=== PATIENT | male | born 1960 | race Caucasian/White ===

== ENCOUNTER 2022-08-08 22:00 | Outpatient (REF) | payer OTHER, SELFPAY ==
[2022-08-08 23:08] LABS: ALT 38 U/L (16-63); AST 23 U/L (15-37); Alkaline Phosphatase 49 U/L (46-116); Anion Gap 12.5 mmol/L (3-11); BUN 17 mg/dL (7-18); Bilirubin, Total 0.6 mg/dL (0.2-1.0); CO2 24.5 mmol/L (21.0-32.0); CREATININE 0.9 mg/dL (0.70-1.30); Calcium 9.7 mg/dL (8.5-10.1); Calculated LDL 92 mg/dL (<100); Chloride 103 mmol/L (98-107); Cholesterol 173 mg/dL (<200); Estimated GFR 96.57 (mL/min/1.73m2); Glucose 84 mg/dL (74-106); HDL Cholesterol 40 mg/dL (40-60); Potassium 4.2 mmol/L (3.5-5.1); Sodium 140 mmol/L (136-145); TSH (W/Ref FT4) 4.84 uIU/mL (0.36-3.74); Total Protein 7.7 g/dL (6.4-8.2); Triglyceride 208 mg/dL (<150)
[2022-08-08 23:26] LABS: FREE T4 0.74 ng/dL (0.76-1.46)
[2022-08-09 18:26] LABS: PSA, Screening 5.2 ng/mL (<=4.5)
[2022-08-10 10:08] LABS: HIV-1/2 Ag & Ab Screen Negative (Negative)
[2022-08-10 10:20] LABS: Hepatitis C Ab w Rflx HCV PCR Negative (Negative)
== END 2022-08-08 22:01 | disposition home or self-care (01) ==
LOC: NCHCN 22:00
PROVIDERS: Visit Provider Nurse Practitioner Family
DX: R94.6 Abnormal results of thyroid function studies (principal); I10 Essential (primary) hypertension; Z13.220 Encounter for screening for lipoid disorders; Z11.3 Encounter for screening for infections with a predominantly sexual mode of transmission; Z12.5 Encounter for screening for malignant neoplasm of prostate
CPT/HCPCS: 80053; 80061; 84153; 86803; 87389; 84439; 84443

== ENCOUNTER 2022-09-18 16:10 | Outpatient (REF) | payer OTHER, SELFPAY ==
[2022-09-18 16:16] LABS: TSH (W/Ref FT4) 1.63 uIU/mL (0.36-3.74)
[2022-09-18 23:25] LABS: PSA, Screening 4.9 ng/mL (<=4.5)
== END 2022-09-18 16:11 | disposition home or self-care (01) ==
LOC: NCHCN 16:10
PROVIDERS: PCP Nurse Practitioner Family; Visit Provider Nurse Practitioner Family
DX: E03.9 Hypothyroidism, unspecified (principal); R97.20 Elevated prostate specific antigen [PSA]
CPT/HCPCS: 84153; 84443

== ENCOUNTER 2023-02-22 09:25 | Outpatient (REF) | payer OTHER, SELFPAY ==
[2023-02-22 15:25] LABS: Calculated LDL 70 mg/dL (<100); Cholesterol 130 mg/dL (<200); HDL Cholesterol 38 mg/dL (40-60); TSH 3.36 uIU/mL (0.36-3.74); Triglyceride 112 mg/dL (<150)
== END 2023-02-22 09:26 | disposition home or self-care (01) ==
LOC: NCHCN 09:25
PROVIDERS: PCP Nurse Practitioner Family; Visit Provider Nurse Practitioner Family
DX: E03.9 Hypothyroidism, unspecified (principal); E78.5 Hyperlipidemia, unspecified
CPT/HCPCS: 80061; 84443

== ENCOUNTER 2023-08-24 13:16 | Outpatient (REF) | payer SELFPAY ==
[2023-08-24 15:20] LABS: ALT 44 U/L (16-63); AST 24 U/L (15-37); Alkaline Phosphatase 39 U/L (46-116); Anion Gap 8.3 mmol/L (3-11); BUN 17 mg/dL (7-18); Bilirubin, Total 0.92 mg/dL (0.2-1.0); CO2 26.7 mmol/L (21.0-32.0); CREATININE 1.1 mg/dL (0.70-1.30); Calcium 9.2 mg/dL (8.5-10.1); Chloride 106 mmol/L (98-107); Estimated GFR 75.43 (mL/min/1.73m2); Glucose 137 mg/dL (74-106); Potassium 4.2 mmol/L (3.5-5.1); Sodium 141 mmol/L (136-145); Total Protein 7.9 g/dL (6.4-8.2)
== END 2023-08-24 13:17 | disposition home or self-care (01) ==
LOC: NCHCN 13:16
PROVIDERS: PCP Nurse Practitioner Family; Visit Provider Nurse Practitioner Family
DX: I10 Essential (primary) hypertension (principal); E03.9 Hypothyroidism, unspecified; N40.1 Benign prostatic hyperplasia with lower urinary tract symptoms
CPT/HCPCS: 80053; 84153; 84443

== ENCOUNTER 2023-10-15 14:59 | Outpatient (REF) | payer SELFPAY ==
[2023-10-15 23:11] LABS: PSA, Diagnostic 6.4 ng/mL (<=4.5)
== END 2023-10-15 15:00 | disposition home or self-care (01) ==
LOC: NCHCN 14:59
PROVIDERS: PCP Nurse Practitioner Family; Visit Provider Nurse Practitioner Family
DX: R97.20 Elevated prostate specific antigen [PSA] (principal)
CPT/HCPCS: 84153

== ENCOUNTER 2024-06-18 11:40 | Outpatient (REF) | payer SELFPAY ==
[2024-06-18 15:30] LABS: Hemoglobin A1C 5.5 % (<5.7)
[2024-06-18 16:08] LABS: Calculated LDL 48 mg/dL (<100); Cholesterol 102 mg/dL (<200); HDL Cholesterol 42 mg/dL (>or=40); Triglyceride 61 mg/dL (<150)
== END 2024-06-18 11:41 | disposition home or self-care (01) ==
LOC: NCHCN 11:40
PROVIDERS: PCP Nurse Practitioner Family; Visit Provider Nurse Practitioner Family
DX: C61 Malignant neoplasm of prostate (principal); E78.5 Hyperlipidemia, unspecified; R73.03 Prediabetes; I10 Essential (primary) hypertension
CPT/HCPCS: 80061; 83036; 84154

== ENCOUNTER 2024-06-23 12:54 | Outpatient (REF) | payer SELFPAY ==
[2024-06-23 21:33] LABS: Anion Gap 9.3 mmol/L (3-11); BUN 20 mg/dL (7-18); CO2 27.7 mmol/L (21.0-32.0); Calcium 9.9 mg/dL (8.5-10.1); Chloride 107 mmol/L (98-107); Estimated GFR 84.05 (mL/min/1.73m2); Glucose 94 mg/dL (74-106); Potassium 4.2 mmol/L (3.5-5.1); Sodium 144 mmol/L (136-145); TSH 3.27 uIU/mL (0.36-3.74)
== END 2024-06-23 12:55 | disposition home or self-care (01) ==
LOC: NCHCN 12:54
PROVIDERS: PCP Nurse Practitioner Family; Visit Provider Nurse Practitioner Family
DX: I10 Essential (primary) hypertension (principal); R94.6 Abnormal results of thyroid function studies
CPT/HCPCS: 80048; 84443